=== PATIENT | male | born 1975 | race Caucasian/White ===

== ENCOUNTER → 2017-04-29 | Outpatient (CLI) | payer BC ==
--- NOTE | 2017-04-29 16:49 | CT ---
EXAMINATION TYPE: CT chest wo con DATE OF EXAM: 04/29/2017 COMPARISON: NONE HISTORY: Patient complains of mass to xiphoid tip region. CT DLP: 163.00 mGycm, Automated exposure control for dose reduction was used. CONTRAST: None TECHNIQUE: Axial images were obtained at 1 mm thick sections at 10 mm intervals. This will limit po rtions of the examination which may not be visualized within the [id number]. Images were obtained in the prone and supine views. FINDINGS: Portion of the thyroid visualized is normal. 0.5 cm area in the medial right lung. Series 8 Scattered small lymph nodes are present. Some superior mediastinal adenopathy is difficult to exclud e. The scutum sections makes evaluation for lymphadenopathy versus unopacified great vessels difficul t. The ascending aorta diameter at the level of the main pulmonary artery is 3.2 cm. The main pulmon oralia artery diameter at the bifurcation is 2.[address] sections are obtained through the upper abdomen. Abdomen is essentially unremarkable. Xiph oid region appears normal. IMPRESSIONS: 1. Scattered adenopathy within the mediastinum. 2. Small area of pneumonitis right middle lobe. 3. Standard CT chest with contrast is recommended for complete evaluation of the thorax. This could f urther evaluate the patient's reported mass in the region of the xiphoid.
== END | disposition home or self-care (01) ==
LOC: RADCTMAIN 15:39
PROVIDERS: ATTEND Internal Medicine
DX: J18.9 Pneumonia, unspecified organism (principal); R59.0 Localized enlarged lymph nodes
CPT/HCPCS: 71250

== ENCOUNTER → 2017-05-13 | Outpatient (CLI) | payer BC ==
--- NOTE | 2017-05-13 23:22 | CT ---
EXAMINATION TYPE: CT chest w con DATE OF EXAM: 05/13/2017 COMPARISON: Prior chest CT 04/27/2017 HISTORY: LUMP NEAR XIPHOID PROCESS AREA. CT DLP: 459 mGycm Automated exposure control for dose reduction was used. CONTRAST: CT scan of the chest is performed with IV Contrast, patient injected with 100 mL of Omnipaque 300. FINDINGS: LUNGS: The lungs are grossly clear, there is no concerning parenchymal mass or nodule identified. T here is no pleural effusion or pneumothorax seen. The tracheobronchial tree is patent. MEDIASTINUM: There are no greater than 1 cm hilar or mediastinal lymph nodes. Some small prevascular nodes again noted. 4 vessel thoracic arch is present. No pericardial effusion is seen. AORTA: No additional significant abnormality is seen. OTHER: At the level of the does show a somewhat anterior course distally likely correlated to patien t's palpable abnormality. There is a pseudarthrosis noted with hypertrophic change, marginal spurring present. IMPRESSION: No evident mass. Bony abnormality as described at the level of the xiphoid, nonaggressiv e appearance
== END | disposition home or self-care (01) ==
LOC: RADCTMAIN 19:10
PROVIDERS: ATTEND Internal Medicine
DX: R93.7 Abnormal findings on diagnostic imaging of other parts of musculoskeletal system (principal)
CPT/HCPCS: 71260; Q9967

== ENCOUNTER → 2019-02-03 | Outpatient (CLI) | payer BC ==
--- NOTE | 2019-02-03 08:35 | US ---
EXAMINATION TYPE: US liver DATE OF EXAM: 02/03/2019 COMPARISON: NONE CLINICAL HISTORY: R94.5 Elevated liver function tests. Abnormal liver function test, patient states n o abdomen pain or N/V, no abdomen surgeries EXAM MEASUREMENTS: Liver Length: 13.8 cm Gallbladder Wall: 0.1 cm CBD: 0.4 cm Right Kidney: 11.1 x 4.8 x 4.9 cm Pancreas: visualized portions wnl, tail obscured by overlying midline bowel gas Liver: mildly heterogeneous Gallbladder: wnl Evidence for sonographic Al's sign: no CBD: wnl Right Kidney: wnl IMPRESSION: Mild hepatic heterogeneity may reflect mild hepatic steatosis.
== END | disposition home or self-care (01) ==
LOC: RADUSWWP 07:28
PROVIDERS: ATTEND Internal Medicine
DX: R94.5 Abnormal results of liver function studies (principal)
CPT/HCPCS: 76705

== ENCOUNTER → 2021-08-20 | Outpatient (CLI) | payer BC ==
--- NOTE | 2021-08-20 12:27 | XR ---
Lumbar spine HISTORY: M 55.5 4 views the lumbar spine, no comparisons There is multilevel spondylosis. Lumbar vertebral bodies show preserved height, alignment, and bone m ineralization. Mild loss of disc height L5-S1. Atherosclerotic vascular calcifications present along the aortic distribution. IMPRESSION: Degenerative disc disease.
== END | disposition home or self-care (01) ==
LOC: RADXRMAIN 09:58
PROVIDERS: ATTEND Physician Assistant
DX: M51.36 Other intervertebral disc degeneration, lumbar region (principal)
CPT/HCPCS: 72100

== ENCOUNTER 2024-12-27 09:33 | Emergency (ER) | payer BC ==
[2024-12-27 09:39] VITALS: TEMP 98.2
[2024-12-27 10:09] LABS: Basophils # (A) 0.02 10*3/uL (0.00-0.10); Basophils % (A) 0.3 %; Eosinophils # (A) 0.07 10*3/uL (0.04-0.35); HCT 37.2 % (39.6-50.0); HGB 13.4 g/dL (13.0-17.0); Lymphocytes # (A) 1.55 10*3/uL (0.90-5.00); Lymphocytes % (A) 22.6 %; MCH 36.4 pg (27.0-32.0); MCV 101.1 fL (80.0-97.0); Mean Platelet Volume 12.8 fL (9.5-12.2); Monocytes # (A) 0.57 10*3/uL (0.20-1.00); Monocytes % (A) 8.3 %; Neutrophils # (A) 4.63 10*3/uL (1.80-7.70); Neutrophils % (A) 67.7 %; Platelet Count 62 10*3/uL (140-440); RBC 3.68 10*6/uL (4.40-5.60); RDW 15.7 % (11.5-14.5); WBC 6.85 10*3/uL (4.50-10.00)
[2024-12-27 10:16] LABS: ALT 62 U/L (4-49); AST 176 U/L (17-59); African American GFR (CKD) >90 (>60 ml/min/1.73 sqM); Albumin 3.7 g/dL (3.5-5.0); Alkaline Phosphatase 177 U/L (38-126); Anion Gap 12 mmol/L; Blood Urea Nitrogen 8 mg/dL (9-20); Calcium 8.5 mg/dL (8.4-10.2); Carbon Dioxide 23 mmol/L (22-30); Chloride 106 mmol/L (98-107); Glucose 178 mg/dL (74-99); Non-African American GFR(CKD) >90 (>60 ml/min/1.73 sqM); Potassium 3.7 mmol/L (3.5-5.1); Sodium 141 mmol/L (137-145); Total Bilirubin 3.2 mg/dL (0.2-1.3); Total Protein 8.6 g/dL (6.3-8.2)
[2024-12-27 10:18] LABS: INR 1.4 (<1.2); Partial Thromboplastin Time 27.8 sec (22.0-30.0); Prothrombin Time 14.4 sec (10.0-12.5)
--- NOTE | 2024-12-27 10:24 | XR ---
EXAMINATION TYPE: XR chest 2V DATE OF EXAM: 12/27/2024 10:18 AM COMPARISON: CT chest 05/13/2017 TECHNIQUE: XR chest 2V Frontal and lateral views of the chest. CLINICAL INDICATION:Male, 49 years old with history of difficulty breathing; FINDINGS: Lungs/Pleura: There is no evidence of pleural effusion, focal consolidation, or pneumothorax. Pulmonary vascularity: Unremarkable. Heart/mediastinum: Cardiomediastinal silhouette is unremarkable. Musculoskeletal: Multiple level degenerative disc disease changes seen throughout the spine. IMPRESSION: No acute cardiopulmonary disease/process. [facility], , 12/27/2024 10:22 AM
[2024-12-27 10:25] LABS: NT-Pro-B-Type Natriuretic Pept 33 pg/mL
--- NOTE | 2024-12-27 10:36 | ED ---
General Adult HPI - General Chief complaint: Shortness of Breath Stated complaint: SOB Time Seen by Provider: 12/27/24 09:48 Source: patient, RN notes reviewed Mode of arrival: ambulatory Limitations: no limitations - History of Present Illness Initial comments: 49-year-old male presents emergency department with chief complaint of leg swelling, shortness of breath, abdominal swelling. Patient states that this started a few weeks states that he was admitted at [facility] for this complaint and signed out AGAINST MEDICAL ADVICE after several days. Patient states that he was told he has enlarged liver, liver issues. Patient does admit that he was a daily drinker he states he went today with increasing leg swelling and abdominal discomfort. Patient denies any fevers or chills no chest pain no headache - Related Data Home Medications Medication Instructions Recorded Confirmed No Known Home Medications 11/11/22 12/27/24 Allergies Allergy/AdvReac Type Severity Reaction Status Date / Time No Known Allergies Allergy Verified 12/27/24 10:51 Review of Systems ROS Statement: Those systems with pertinent positive or pertinent negative responses have been documented in the HPI. ROS Other: All systems not noted in ROS Statement are negative. Past Medical History Past Medical History: No Reported History History of Any Multi-Drug Resistant Organisms: None Reported Past Surgical History: No Surgical Hx Reported Past Anesthesia/Blood Transfusion Reactions: No Reported Reaction Past Psychological History: No Psychological Hx Reported Smoking Status: Current every day smoker Past Alcohol Use History: Daily Past Drug Use History: Marijuana General Exam Limitations: no limitations General appearance: alert, in no apparent distress Head exam: Present: atraumatic, normocephalic, normal inspection Eye exam: Present: normal appearance, PERRL, EOMI. Absent: scleral icterus, conjunctival injection, periorbital swelling ENT exam: Present: normal exam, normal oropharynx, mucous membranes moist Neck exam: Present: normal inspection, full ROM. Absent: tenderness, meningismus, lymphadenopathy Respiratory exam: Present: normal lung sounds bilaterally. Absent: respiratory distress, wheezes, rales, rhonchi, stridor Cardiovascular Exam: Present: regular rate, normal rhythm, normal heart sounds. Absent: systolic murmur, diastolic murmur, rubs, gallop, clicks GI/Abdominal exam: Present: soft, distended, normal bowel sounds. Absent: tenderness, guarding, rebound, rigid Extremities exam: Present: pedal edema Neurological exam: Present: alert, oriented X3 Course Vital Signs 12/27/24 12/27/24 12/27/24 09:36 09:38 11:58 Temperature 98.2 F Pulse Rate 99 95 75 Respiratory 22 20 16 Rate Blood Pressure 160/89 154/86 130/68 O2 Sat by Pulse 96 97 98 Oximetry EKG Findings - EKG Comments: EKG Findings:: EKG performed at 9: 47 sinus rhythm rate of 94 MI 203 QRS 101 QT/QTc 361/413 - EKG Results: EKG: interpreted by LUCIEN Medical Decision Making - Medical Decision Making Was pt. sent in by a medical professional or institution (, PA, CHURCH ORGANIST, urgent care, hospital, or fci...) When possible be specific @ -No Did you speak to anyone other than the patient for history (EMS, parent, family, police, friend...)? What history was obtained from this source @ -No Did you review nursing and triage notes (agree or disagree)? Why? @ -I reviewed and agree with nursing and triage notes Were old charts reviewed (outside hosp., previous admission, EMS record, old EKG, old radiological studies, urgent care reports/EKG's, fci records)? Report findings @ -No old charts were reviewed Differential Diagnosis (chest pain, altered mental status, abdominal pain women, abdominal pain men, vaginal bleeding, weakness, fever, dyspnea, syncope, heada phi, dizziness, GI bleed, back pain, seizure, CVA, palpatations, mental health, musculoskeletal)? @ -Differential Dyspnea: Coronary syndrome, arrhythmia, tamponade, asthma, COPD, pulmonary embolism, pneumonia, pneumothorax, pulmonary effusion, anaphylaxis, diabetic ketoacidosis, flailed chest, pulmonary contusion, diaphragmatic rupture, anemia, neuromuscular, this is not meant to be an all-inclusive list. Differential Abdominal Pain Men: Appendicitis, cholecystitis, diverticulosis, ischemic bowel, pancreatitis, hepatitis, UTI, gastroenteritis, AAA, incarcerated hernia, bowel obstruction, constipation, inflammatory bowel, hepatitis, peptic ulcer disease, splenic infarction, perforated viscus, testicular torsion, this is not meant to be an all-inclusive list EKG interpreted by me (3pts min.). @ -As above X-rays interpreted by me (1pt min.). @ -[Chest x-ray shows no acute cardiopulmonary process. CT interpreted by me (1pt min.). @ -None done U/S interpreted by me (1pt. min.). @ -None done What testing was considered but not performed or refused? (CT, X-rays, U/S, labs)? Why? @ -None What meds were considered but not given or refused? Why? @ -None Did you discuss the management of the patient with other professionals (professionals i.e. Dr., PA, CHURCH ORGANIST, lab, RT, psych nurse, social welfare research worker, equine breeder, teacher, correctional officer lieutenant, case coordinator)? Give summary @ -No Was smoking cessation discussed for >3mins.? @ -No Was critical care preformed (if so, how long)? @ -No Were there social determinants of health that impacted care today? How? (Homelessness, low income, unemployed, alcoholism, drug addiction, transportation, low edu. Level, literacy, decrease access to med. care, long-term, rehab)? @ -No Was there de-escalation of care discussed even if they declined (Discuss DNR or withdrawal of care, Hospice)? DNR status @ -No What co-morbidities impacted this encounter? (DM, HTN, Smoking, COPD, CAD, Cancer, CVA, ARF, Chemo, Hep., AIDS, mental health diagnosis, sleep apnea, morbid obesity)? @ -[Alcohol abuse Was patient admitted / discharged? Hospital course, mention meds given and route , prescriptions, significant lab abnormalities, going to OR and other pertinent info. @ -Charge patient has mild leg edema, minimal abdominal swelling. Patient's laboratory studies show evidence of Tyler related to his liver cirrhosis. Patient has leg edema and minimal ascites related to liver cirrhosis. Patient has been recently worked up for this complaint. He has no hypoxia, no pleural effusion no pulmonary edema currently. Patient be discharged in stable condition. Undiagnosed new problem with uncertain prognosis? @ -No Drug Therapy requiring intensive monitoring for toxicity (Heparin, Nitro, Insulin, Cardizem)? @ -No Were any procedures done? @ -No Diagnosis/symptom? @ -edema liver cirrhosis Acute, or Chronic, or Acute on Chronic? @ -Acute Uncomplicated (without systemic symptoms) or Complicated (systemic symptoms)? @ -uncomplicated Side effects of treatment? @ -No Exacerbation, Progression, or Severe Exacerbation? @ -No Poses a threat to life or bodily function? How? (Chest pain, USA, CT, pneumonia, PE, COPD, DKA, ARF, appy, cholecystitis, CVA, Diverticulitis, Homicidal, S uicidal, threat to staff... and all critical care pts) @ -No - Lab Data Result diagrams: 12/27/24 09:56 12/27/24 09:56 Lab Results 12/27/24 12/27/24 12/27/24 Range/Units 09:56 09:56 09:56 WBC 6.85 (4.50-10.00) 10*3/uL RBC 3.68 L (4.40-5.60) 10*6/uL Hgb 13.4 (13.0-17.0) g/dL Hct 37.2 L (39.6-50.0) % MCV 101.1 H (80.0-97.0) fL MCH 36.4 H (27.0-32.0) pg MCHC 36.0 (32.0-37.0) g/dL Plt Count 62 L (140-440) 10*3/uL MPV 12.8 H (9.5-12.2) fL Immature Gran % (Auto) 0.1 % Neutrophils % 67.7 % Lymphocytes % 22.6 % Monocytes % 8.3 % Eosinophils % 1.0 % Basophils % 0.3 % Immature Gran # 0.01 (0.00-0.04) 10*3/uL Neutrophils # 4.63 (1.80-7.70) 10*3/uL Lymphocytes # 1.55 (0.90-5.00) 10*3/uL Monocytes # 0.57 (0.20-1.00) 10*3/uL Eosinophils # 0.07 (0.04-0.35) 10*3/uL Basophils # 0.02 (0.00-0.10) 10*3/uL Manual Slide Review Performed PT 14.4 H (10.0-12.5) sec INR 1.4 H (<1.2) APTT 27.8 (22.0-30.0) sec Sodium 141 (137-145) mmol/L Potassium 3.7 (3.5-5.1) mmol/L Chloride 106 (98-107) mmol/L Carbon Dioxide 23 (22-30) mmol/L Anion Gap 12 mmol/L BUN 8 L (9-20) mg/dL Creatinine 0.71 (0.66-1.25) mg/dL Est GFR (CKD-EPI)AfAm >90 (>60 ml/min/1.73 sqM) Est GFR (CKD-EPI)NonAf >90 (>60 ml/min/1.73 sqM) Glucose 178 H (74-99) mg/dL Calcium 8.5 (8.4-10.2) mg/dL Total Bilirubin 3.2 H (0.2-1.3) mg/dL AST 176 H (17-59) U/L ALT 62 H (4-49) U/L Alkaline Phosphatase 177 H (38-126) U/L Troponin I (0.000-0.034) ng/mL NT-Pro-B Natriuret Pep 33 pg/mL Total Protein 8.6 H (6.3-8.2) g/dL Albumin 3.7 (3.5-5.0) g/dL 12/27/24 Range/Units 09:56 WBC (4.50-10.00) 10*3/uL RBC (4.40-5.60) 10*6/uL Hgb (13.0-17.0) g/dL Hct (39.6-50.0) % MCV (80.0-97.0) fL MCH (27.0-32.0) pg MCHC (32.0-37.0) g/dL Plt Count (140-440) 10*3/uL MPV (9.5-12.2) fL Immature Gran % (Auto) % Neutrophils % % Lymphocytes % % Monocytes % % Eosinophils % % Basophils % % Immature Gran # (0.00-0.04) 10*3/uL Neutrophils # (1.80-7.70) 10*3/uL Lymphocytes # (0.90-5.00) 10*3/uL Monocytes # (0.20-1.00) 10*3/uL Eosinophils # (0.04-0.35) 10*3/uL Basophils # (0.00-0.10) 10*3/uL Manual Slide Review PT (10.0-12.5) sec INR (<1.2) APTT (22.0-30.0) sec Sodium (137-145) mmol/L Potassium (3.5-5.1) mmol/L Chloride (98-107) mmol/L Carbon Dioxide (22-30) mmol/L Anion Gap mmol/L BUN (9-20) mg/dL Creatinine (0.66-1.25) mg/dL Est GFR (CKD-EPI)AfAm (>60 ml/min/1.73 sqM) Est GFR (CKD-EPI)NonAf (>60 ml/min/1.73 sqM) Glucose (74-99) mg/dL Calcium (8.4-10.2) mg/dL Total Bilirubin (0.2-1.3) mg/dL AST (17-59) U/L ALT (4-49) U/L Alkaline Phosphatase (38-126) U/L Troponin I <0.012 (0.000-0.034) ng/mL NT-Pro-B Natriuret Pep pg/mL Total Protein (6.3-8.2) g/dL Albumin (3.5-5.0) g/dL Disposition Clinical Impression: Edema, Liver cirrhosis Disposition: HOME SELF-CARE Condition: Stable Instructions (If sedation given, give patient instructions): Cirrhosis (ED), Ascites (ED) Additional Instructions: Please return to the Emergency Department if symptoms worsen or any other concerns. Is patient prescribed a controlled substance at d/c from ED?: No Referrals: Cole Gandara MD [Primary Care Provider] - 1-2 days Time of Disposition: 12:18
[2024-12-27 11:59] VITALS: RESP 16
[2024-12-27 12:38] VITALS: BP 130/65; PULSE 68
== END 2024-12-27 12:38 | disposition home or self-care (01) ==
LOC: EC 09:33
DX: K74.60 Unspecified cirrhosis of liver (principal); F10.10 Alcohol abuse, uncomplicated; F17.200 Nicotine dependence, unspecified, uncomplicated
CPT/HCPCS: 36415; 71046; 80053; 83880; 84484; 85025; 85610; 85730; 93005; 99285

== ENCOUNTER → 2025-01-17 | Outpatient (CLI) | payer BC ==
--- NOTE | 2025-01-17 08:42 | US ---
EXAMINATION TYPE: US abdomen complete DATE OF EXAM: 01/17/2025 COMPARISON: US(02/03/2019) CLINICAL INDICATION: Male, 49 years old with history of R16.0 ENLARGE LIVER; TECHNIQUE: Grayscale and color Doppler imaging of the abdomen was performed. FINDINGS: EXAM MEASUREMENTS: Liver Length: 18.3 cm Gallbladder Wall: 0.7 cm CBD: 0.3 cm, color Doppler imaging was utilized to isolate the common bile duct for measurement. Spleen: 12.2 cm Right Kidney: 12.9x4.8x4.8 cm Left Kidney: 13.8x6.2x5.9 cm PUMPING PLANT OPERATOR NOTES: limited exam due to slight overlying bowel Pancreas: Tail obscured by overlying bowel gas Liver: Enlarged, course echotexture. cirrhotic contour no suspicious observations. Gallbladder: ?thickened irregular edematous wall with pericholecystic fluid seen adj to ?possible sludge vs tiny nonmobile echogenic foci Evidence for sonographic Al's sign: No CBD: wnl Spleen: wnl Right Kidney: slightly obscured by bowel, wnl as best visualized Left Kidney: slightly obscured by bowel, wnl as best visualized Upper IVC: prox:wnl as best visualized, mid/dist: obscured by bowel Abd Aorta: slightly limited visualization due to overlying bowel, wnl as best visualized The liver is cirrhotic with nodular contour and coarsened echotexture. The intrahepatic portion of t he IVC and proximal abdominal aorta are within normal limits. There there is evidence of biliary slu dge with layering debris and thickened gallbladder yung with pericholecystic fluid. The visualized p ortions of the pancreas are homogenous. The spleen is unremarkable. Kidneys are symmetric and free of hydronephrosis. No renal lesions are seen. IMPRESSION: 1. Hepatic cirrhosis. No suspicious observations. 2. Edematous gallbladder wall which can be seen in cirrhotic patients. There is an pericholecystic f luid and biliary sludge. Correlate for signs and symptoms of acute cholecystitis. [facility], , 01/17/2025 8:40 AM
== END | disposition home or self-care (01) ==
LOC: RADUSWWP 07:39
PROVIDERS: ATTEND Family Medicine
DX: R16.0 Hepatomegaly, not elsewhere classified (principal); K74.60 Unspecified cirrhosis of liver
CPT/HCPCS: 76700